=== PATIENT | female | born 2000 | race Caucasian/White ===

== ENCOUNTER 2018-11-05 17:24 | Emergency (ER) | payer MEDICAID ==
[~2018-11-05] VITALS: Ht 162.6 cm; Wt 113.6 kg
[2018-11-05 18:06] VITALS: Ht 162.6 cm; Wt 113.6 kg
[2018-11-05 19:19] VITALS: BP 128/52
== END 2018-11-05 19:20 | disposition home or self-care (01) ==
LOC: D.ER 17:24
DX: Z00.00 Encounter for general adult medical examination without abnormal findings (principal)